=== PATIENT | female | born 1995 | race Hispanic/Latino ===

== ENCOUNTER 2019-06-13 07:09 | Outpatient (CLI) | payer BC ==
--- NOTE | 2019-06-13 09:01 | ULT ---
ABDOMEN ULTRASOUND: HISTORY: Worsening change in bowel x 10 months. Diarrhea. COMPARISON: None. TECHNIQUE: Utilizing a multihertz transducer, sonographic imaging of the abdomen is performed in the longitudina l and transverse plane. FINDINGS: Visualized IVC and aorta are unremarkable. The head and proximal pancreatic body have a normal echotexture. The remainder of the pancreas is ob scured by bowel gas. Hepatic parenchyma has a normal echotexture. No hepatic masses or intrahepatic biliary dilatation. The contour of the hepatic margin is maintained. The right hepatic lobe measur es 16.0 cm. Main portal vein is patent. Appropriate direction of flow. Common duct diameter is 0.34 cm. No sonographic evidence of cholelithiasis, gallbladder wall thickening, or pericholecystic fluid. Negative Malagon's sign. Left and right kidney have a normal cortical echotexture. Bilaterally, no hydronephrosis. The right kidney measures 3.7 x 11.4 x 3.8 cm. The left kidney measures 11.0 x 4.1 x 4.5 cm. The spleen has a normal echotexture measuring 9.9 cm. IMPRESSION: Unremarkable abdomen ultrasound. POS: [facility]
== END 2019-06-13 07:10 | disposition home or self-care (01) ==
LOC: SCSULT 07:09
PROVIDERS: ATTEND Family Medicine
DX: R10.9 Unspecified abdominal pain (principal); R19.7 Diarrhea, unspecified
CPT/HCPCS: 76700

== ENCOUNTER 2020-05-16 14:19 | Outpatient (CLI) | payer BC ==
--- NOTE | 2020-05-16 14:49 | ULT ---
US Thyroid STANDARD: 05/16/2020 2:45 PM CLINICAL INDICATION: Abnormal thyroid laboratory values. COMPARISON: None. FINDINGS: The right thyroid lobe measures 1.2 cm and the left thyroid lobe measures 1.2cm. No thyroid nodules are present. No cervical lymphadenopathy is noted. IMPRESSION: Normal thyroid ultrasound
== END 2020-05-16 14:20 | disposition home or self-care (01) ==
LOC: SCSULT 14:19
PROVIDERS: ATTEND Family Medicine
DX: E07.89 Other specified disorders of thyroid (principal)
CPT/HCPCS: 76536